=== PATIENT | female | born 1985 ===

== ENCOUNTER 2020-06-15 10:42 | Inpatient (IN) ==
[2020-06-15] MEDS ORDERED: Lactated Ringers 1000 ml BAG 1,000 ML IV ONE (11:39)
[2020-06-15] MEDS ORDERED: Penicillin G Potassium IV 5,000,000 UNITS in NS 0.9% 100 ml BAG 100 ML IVPB ONE (11:39)
[2020-06-15] MEDS ORDERED: Penicillin G Potassium IV 3,000,000 UNITS in NS 0.9% 100 ml BAG 100 ML IVPB SCH (12:00)
[2020-06-15] MEDS ORDERED: Buffered Lidocaine 1% SYRIN 1 ml INTRADERM ONE (12:10)
[2020-06-15 12:38] LABS: Urine Benzodiazepine Screen None Detected (None Detect); Urine Cannabinoids Screen None Detected (None Detect); Urine Opiates Screen None Detected (None Detect)
[2020-06-15 13:18] LABS: ABS Basophils 0.1 10^3/ul (0-0.2); ABS Eosinophils 0.1 10^3/ul (0-0.6); ABS Lymphocytes 1.6 10^3/ul (1.0-4.8); ABS Monocytes 0.7 10^3/ul (0-0.8); Hematocrit 36 % (35-47); Hemoglobin 12.2 g/dL (12.0-16.0); Mean Corpuscular HGB Conc 34 g/dL (31-36); Mean Corpuscular Hemoglobin 32 pg (27-31); Mean Corpuscular Volume 95 fL (80-97); Mean Platelet Volume 10.1 fL (7.4-10.4); Platelet Count 169 10^3/uL (150-450); Red Cell Distribution Width 13 % (10-15); White Blood Count 11.5 10^3/uL (3.5-10.8)
[2020-06-15] MEDS: Penicillin G Potassium IV 3,000,000 UNITS in NS 0.9% 100 ml BAG 100 ML IVPB SCH ×2 (17:07→21:12)
[2020-06-15] MEDS ORDERED: OBEPIDURAL 250 ML EPIDURAL ONE (18:09)
[2020-06-15] MEDS ORDERED: fentaNYL 100 mcg/2 ml 50 MCG/ML VIAL ONE (18:42)
[2020-06-15] MEDS ORDERED: Oxytocin in LR 20 UNITS/1,000 ML BAG IVPB SCH (21:00)
[2020-06-15] MEDS: Lactated Ringers 1000 ml BAG 1,000 ML IV SCH (21:14)
[2020-06-15] MEDS ORDERED: ceFOXitin 2 GM IVPREMIX 2 GM/50 ML BAG IVPB ONE (22:17)
[2020-06-15] MEDS ORDERED: ceFOXitin 2 GM IVPREMIX 2 GM/50 ML BAG ONE (22:18)
[2020-06-15] MEDS ORDERED: Lactated Ringers 1000 ml BAG 1,000 ML IV SCH (23:45)
[2020-06-15] MEDS ORDERED: Glycerin ADULT 2.4 gm SUPP PR PRN (23:59)
[2020-06-15] MEDS ORDERED: Dibucaine 1% OINT 28.35 GM TUBE PR PRN (23:59)
[2020-06-15] MEDS ORDERED: Witch Hazel PAD JAR TOPICAL PRN (23:59)
[2020-06-16] MEDS ORDERED: Naloxone 0.4 mg VIAL 0.4 mg/ml 1 ml VIAL IV PRN (00:19)
[2020-06-16] MEDS ORDERED: Ondansetron ODT 4 mg TAB 4 MG TAB PO PRN (00:19)
[2020-06-16] MEDS ORDERED: Metoclopramide 5 MG/ML VIAL (10 mg) IV PRN (00:19)
[2020-06-16] MEDS: Lactated Ringers 1000 ml BAG 1,000 ML IV SCH (02:04)
[2020-06-16 07:45] LABS: ABS Basophils 0.1 10^3/ul (0-0.2); ABS Lymphocytes 1.1 10^3/ul (1.0-4.8); ABS Monocytes 0.7 10^3/ul (0-0.8); ABS Neutrophils 13.6 10^3/ul (1.5-7.7); Hematocrit 31 % (35-47); Hemoglobin 10.8 g/dL (12.0-16.0); Lymphocyte % 7.1 %; Mean Corpuscular HGB Conc 35 g/dL (31-36); Mean Corpuscular Hemoglobin 34 pg (27-31); Mean Corpuscular Volume 96 fL (80-97); Mean Platelet Volume 10.4 fL (7.4-10.4); Platelet Count 130 10^3/uL (150-450); Red Blood Count 3.19 10^6 /uL (3.70-4.87); Red Cell Distribution Width 13 % (10-15); White Blood Count 15.4 10^3/uL (3.5-10.8)
[2020-06-16] MEDS: Penicillin G Potassium IV 3,000,000 UNITS in NS 0.9% 100 ml BAG 100 ML IVPB SCH (09:16)
[2020-06-17 11:55] VITALS: BP 137/85
== END 2020-06-17 19:45 | disposition home or self-care (01) ==
LOC: MCHOBOUT 10:42 → MCHOB 10:44
PROVIDERS: ADMIT Advanced Practice Midwife; ATTEND Obstetrics & Gynecology